=== PATIENT | male | born 1965 | race Caucasian/White ===

== ENCOUNTER 2016-02-25 14:12 | Emergency (ER) | payer BC ==
[2016-02-25] MEDS ORDERED: Ondansetron HCl/PF 4 MG/2 ML Vial ONE (14:36)
[2016-02-25] MEDS ORDERED: Ketorolac Tromethamine 30 MG/ML VIAL ONE (14:36)
[2016-02-25 14:54] LABS: #Basophils 0.1 thou/uL (0.0-0.2); #Eosinphils 0.2 thou/uL (0.0-0.7); #Lymphocytes 1.5 thou/uL (1.20-3.40); #Monocytes 0.4 thou/uL (0.11-0.59); %Monocytes 5.4 % (0.0-10.0); Hematocrit 51.4 % (42.0-52.0); Mean Platelet Volume 8.5 fL (7.4-10.4); Red Blood Cell (RBC) Count 5.39 mill/uL (4.70-6.10); White Blood Cell (WBC) Count 7.2 thou/uL (4.8-10.8)
[2016-02-25 15:11] LABS: ALT (SGPT) 23 U/L (0-55); AST (SGOT) 22 U/L (5-34); Alkaline Phosphatase 94 U/L (40-150); Anion Gap 15 mmol/L (10-20); BUN (Urea Nitrogen) 15 mg/dL (8.4-25.7); Bilirubin, Total 0.3 mg/dL (0.2-1.2); Calc. Creatinine Clearance 0 mL/min (70-130); Calcium 9.2 mg/dL (7.8-10.44); Carbon Dioxide 22 mmol/L (22-29); Chloride 105 mmol/L (98-107); Estimated GFR-MDRD 81; Globulin 3.2 g/dL (2.4-3.5); Lipase 33 U/L (8-78); Protein, Total 7.2 g/dL (6.0-8.3)
--- NOTE | 2016-02-25 17:14 | CT ---
CT ABDOMEN AND PELVIS WITH CONTRAST: Date: 02-25-16 Technique: Spiral CT of the abdomen and pelvis was performed for evaluation of periumbilical pain a fter giving oral and IV contrast. Axial slices were acquired and then coronal and sagittal reconstr uctions were done. FINDINGS: There is some dependent atelectasis in the lower lobes posteriorly. Otherwise, visible portions of the lower lungs were clear. A small hiatal hernia is present. The stomach is mildly distended with a large amount of the barium drunk still within the stomach. I cannot exclude some mild swelling at the gastric outlet. There is some mild wall thickening and a few loops of proximal jejunum, after which, the bowel is unremark able. Sometimes this can be seen in enteritis. The colon shows no dilation to suggest obstruction, nor is there a small bowel obstruction. The appendix was identified and appears normal. No free a ir or free fluid was seen. The liver, spleen, pancreas, adrenal glands, gallbladder and abdominal aorta all showed no acute fin dings. CT of the pelvis showed some mild increase in size of the prostate (5.5 cm width). No pelvic masses , inflammatory changes, or adenopathy was seen. The bony structures showed no acute changes. IMPRESSION: 1. Small hiatal hernia. 2. Mild gastric distention and slight thickening of a few loops of proximal small bowel. See above . 3. Regarding the patient's anterior abdominal wall, I do not see any obvious hernia, abscess, or ar ea of significance. POS: HOME
--- NOTE | 2016-02-25 19:01 | ERRECORD ---
[facility] EMERGENCY RECORD HPI ABDOMINAL PAIN (15:37 MBRI) CHIEF COMPLAINT: Patient presents for evaluation of abdominal pain. HISTORIAN: History provided by patient. LOCATION MALE: Symptoms are localized, most severe periumbilical, no radiation, No migration of pain, Pt states that when he stands up he feels some swelling in the area just sup to his umbilicus. Not present when he lays down. QUALITY: Pain is dull in nature, described as aching, sharp periods intermittently, worse today. SEVERITY: Maximum severity of symptoms moderate, Currently symptoms are moderate. TIME COURSE: Gradual onset of symptoms, 1 week but worse today., Symptoms are intermittent, Symptoms are worsening. ASSOCIATED WITH: No associated recent antibiotic use, No associated bright red blood per rectum, Associated with chills, No associated constipation, No associated diarrhea, No associated fever, No associated groin pain, No associated hematemesis, No associated hematuria, No associated loss of appetite, No associated melena, No associated nausea, No associated testicular pain, No associated trauma, No associated recent travel, No associated inability to tolerate oral intake, No associated urinary tract infection signs or symptoms, No associated vomiting. RELIEVED BY: Patient's condition relieved by nothing. EXACERBATED BY: Patient's condition exacerbated by cough, Patient's condition exacerbated by upright position. RISK FACTORS MALE: No testicular torsion risk factors, No abdominal aortic aneurysm risk factors, No coronary artery disease risk factors. ROS (15:34 MBRI) CONSTITUTIONAL: Negative constitutional review of systems, Historian denies chills, denies fever. EYES: Negative eye review of systems. ENT: Historian denies rhinorrhea, denies sore throat. CARDIOVASCULAR: Historian denies chest pain, denies dyspnea on exertion. RESPIRATORY: Historian denies cough, denies shortness of breath. GI: Negative gastrointestinal review of systems, Historian denies abdominal pain, denies diarrhea, denies nausea, denies vomiting. MUSCULOSKELETAL: Historian denies injury, Denies any musculoskeletal pain. SKIN: Negative skin review of systems, Historian denies skin changes. NEUROLOGIC: Negative neurologic review of systems, Historian denies focal weakness, denies sensory changes. PAST MEDICAL HISTORY (14:35 LGIB) MEDICAL HISTORY: No past medical history. MALE SURGICAL HISTORY: Surgical history of hernia repair. &a-1R&a+25V*p+0X*[id number]*c202B*c15G*c2P*p-0X&a-25V&a+1R Name: Rayshawn Banegas : 1965 M50 MedRec: [id number] AcctNum: [id number] Prepared: ThuFeb 25, 2016 18:39 by Interface Page 1 of 3 pMD [facility] EMERGENCY RECORD PSYCHIATRIC HISTORY: No previous psychiatric history. SOCIAL HISTORY: Patient denies alcohol use, Patient denies drug use, Patient currently uses tobacco, smokes cigarettes, Patient smokes 1 pack per day. KNOWN ALLERGIES No Known Drug Allergies CURRENT MEDICATIONS (18:33 KMOR) Unable to obtain VITAL SIGNS VITAL SIGNS: BP: 144/97, Pulse: 89, Resp: 18 (Non-Labored), Temp: 98.2 (Oral), Pain: 7, O2 sat: 96 on Room Air, Time: 02/25/2016 14:19. (14:19 LGIB) BP: 140/96, Pulse: 81, Resp: 18, Pain: 0, O2 sat: 94 on Room Air, Time: 02/25/2016 16:46. (16:46 KMOR) PHYSICAL EXAM CONSTITUTIONAL: Vital Signs Reviewed, Nursing notes reviewed. (15:34 MBRI) HEAD: Head exam included findings of head atraumatic, normocephalic. (15:34 MBRI) EYES: Eye exam included findings of eyelids normal to inspection, Pupils equally round and reactive to light, Extraocular muscles intact. (15:34 MBRI) ENT: Pharynx exam normal, Mouth exam normal. (15:34 MBRI) NECK: Neck exam normal, no cervical adenopathy, no tenderness. (15:34 MBRI) RESPIRATORY CHEST: Respiratory exam included findings of no respiratory distress, Breath sounds clear, No wheezing, No rales, No rhonchi. (15:34 MBRI) CARDIOVASCULAR: Cardiovascular exam included findings of heart rate regular rate and rhythm, Heart sounds normal, Carotids normal. (15:34 MBRI) ABDOMEN MALE: Abdominal exam included findings of abdomen tender, periumbilical, mild intensity, Bowel sounds, hyperactive, no distension, no mass, no pulsatile masses, no peritoneal signs, no rigidity, no guarding, no rebound, no inguinal hernia, no umbilical hernia present, no ventral hernia. (15:36 MBRI) BACK: Back exam included findings of normal inspection, no tenderness. (15:34 MBRI) UPPER EXTREMITY: Upper extremity exam included findings of inspection normal, Radial pulse normal, no cyanosis, no clubbing, no edema. (15:34 MBRI) LOWER EXTREMITY: Lower extremity exam included findings of inspection normal, femoral pulses normal, no cyanosis, no clubbing, no edema, no tenderness noted. (15:34 MBRI) NEURO: Neuro exam findings include patient oriented to person, &a-1R&a+25V*p+0X*[id number]*c202B*c15G*c2P*p-0X&a-25V&a+1R Name: Rayshawn Banegas : 1965 M50 MedRec: [id number] AcctNum: [id number] Prepared: ThuFeb 25, 2016 18:39 by Interface Page 2 of 3 pMD [facility] EMERGENCY RECORD place and time, Speech normal, no focal motor deficits. (15:34 MBRI) SKIN: Skin exam included findings of skin warm, dry, and normal in color. (15:34 MBRI) RADIOLOGYINTERPRETATION (16:25 MBRI) ABDOMEN: Abdomen/pelvis CT scan, with contrast negative, no abdominal aortic aneurysm, no appendicitis, no diverticulitis, no injuries, no mass, no obstruction, no free air, slight thickening of the prox sma bowel without other acute process. 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 MEDICATION ADMINISTRATION SUMMARY Drug Name: ketorolac injection, Dose Ordered: 30 mg, Route: IV Push, Status: Given, Time: 14:46 02/25/2016, Drug Name: morphine injection, Dose Ordered: 4 mg, Route: IV Push, Status: Given, Time: 14:45 02/25/2016, Drug Name: ondansetron HCl intravenous, Dose Ordered: 4 mg, Route: IV Push, Status: Given, Time: 14:43 02/25/2016, Drug Name: *sodium chloride 0.9 % intravenous, Dose Ordered: 1 L, Route: IV Fluid Infusion, Status: Given, Time: 14:42 02/25/2016, *Additional information available in notes, Detailed record available in Medication Service section. DOCTOR NOTES (16:26 MBRI) RE-EVALUATION: Routine re-evaluation, after administration of analgesics, The patient's condition has improved, Pt with some slight fullness in the area just sup to the umbilicus when he stands that really is nontender at this time. PROBLEM LIST No recorded problems DIAGNOSIS (16:30 MBRI) FINAL: PRIMARY: UNSPECIFIED ABDOMINAL PAIN. PRESCRIPTION (16:30 MBRI) traMADol: TABLET : 50 mg : ORAL : Quantity: 1 Unit: tab(s) Route: ORAL Schedule: every 6 hours PRN Dispense: 20 May substitute. Refills: No Refills . NOTES: No refills. DISPOSITION PATIENT: Disposition Type: Discharge, Disposition: *Discharge Home, Condition: Good. (16:30 MBRI) Patient left the department. (18:35 KMOR) [place]: KMOR=JOSSIE Adkins, Tiffany LGIB=JOSSIE Steele, Ines MBRI=DO Harden Matthew &a-1R&a+25V*p+0X*a9557B*c202B*c15G*c2P*p-0X&a-25V&a+1R Name: Rayshawn Banegas : 1965 M50 MedRec: [id number] AcctNum: [id number] Prepared: ThuFeb 25, 2016 18:39 by Interface Page 3 of 3 pMD MTDD
--- NOTE | 2016-02-25 19:06 | PICIS ---
[facility] EMERGENCY RECORD TRIAGE (ThuFeb 25, 2016 14:21 LGIB) TRIAGE NOTES: thinks he has a hernia. sharp pain. (ThuFeb 25, 2016 14:21 LGIB) PATIENT: NAME: Rayshawn Banegas, AGE: 50, GENDER: male, : [facility] 1965, TIME OF GREET: ThuFeb 25, 2016 14:12, PREFERRED LANGUAGE: Amharic, ETHNICITY: Not or , ECODE BILLING MAP: [facility] ER, KG WEIGHT: 83.91, , , PERSON ID: [id number], PCP: oot. (ThuFeb 25, 2016 14:21 LGIB) Zip Code: [address], PHONE: , PAYMENT: [employer]. (15:01) COMPLAINT: abd pain. (ThuFeb 25, 2016 14:21 LGIB) ADMISSION: URGENCY: 3 Urgent, ADMISSION SOURCE: Home, TRANSPORT: CAR, BED: ER -02. (ThuFeb 25, 2016 14:21 LGIB) PROVIDERS: TRIAGE NURSE: Ines Steele RN. (ThuFeb 25, 2016 14:21 LGIB) VITAL SIGNS: BP 144/97, Pulse 89, Resp 18, (Non-Labored), Temp 98.2, (Oral), Pain 7, O2 Sat 96, on Room Air, Time 02/25/2016 14:19. (14:19 LGIB) KNOWN ALLERGIES No Known Drug Allergies CURRENT MEDICATIONS (18:33 KMOR) Unable to obtain VITAL SIGNS VITAL SIGNS: BP: 144/97, Pulse: 89, Resp: 18 (Non-Labored), Temp: 98.2 (Oral), Pain: 7, O2 sat: 96 on Room Air, Time: 02/25/2016 14:19. (14:19 LGIB) BP: 140/96, Pulse: 81, Resp: 18, Pain: 0, O2 sat: 94 on Room Air, Time: 02/25/2016 16:46. (16:46 KMOR) NURSING PROCEDURE: DISCHARGE NOTE (18:33 KMOR) DISCHARGE: Patient discharged to home, ambulating without assistance, driving self, unaccompanied, Summary of Care printed/ provided, Transition record given to patient, Discharge instructions given to patient, Simple or moderate discharge teaching performed, by JOSSIE Allen, Discharge instructions and follow up reviewed with patient. Pt ambulatory to discharge desk., Prescriptions given and instructions on side effects given, Name of prescription(s) given: tramadol, Above person(s) verbalized understanding of discharge instructions and follow-up care. BELONGINGS: Belongings remain with patient, Valuables remain with patient. NURSING PROCEDURE: IV PATIENT IDENITIFIER: Patient actively involved in identification process, Patient's identity verified by patient stating name, Patient's identity verified by patient stating date. (15:00 KMOR) &a-1R&a+25V*p+0X*a4552P*c202B*c15G*c2P*p-0X&a-25V&a+1R Name: Rayshawn Banegas : 1965 M50 MedRec: [id number] AcctNum: [id number] Prepared: ThuFeb 25, 2016 18:45 by Interface Page 1 of 10 pMD [facility] EMERGENCY RECORD Patient actively involved in identification process, Patient's identity verified by patient stating name, Patient's identity verified by patient stating date. (16:45 KMOR) IV SITE 1: IV therapy indicated for hydration, IV therapy indicated for medication administration, IV established, to the left antecubital, using an 18 gauge catheter, Saline lock established, Flushed with normal saline (mls): 10cc, Labs drawn at time of placement, labeled in the presence of the patient and sent to lab. (15:00 KMOR) FOLLOW-UP SITE 1: After procedure, 2x3 ensure dressing applied, After procedure, no drainage at IV site, After procedure, no swelling at IV site, After procedure, no redness at IV site. (15:00 KMOR) IV discontinued, due to patient being discharged, catheter intact. (16:45 KMOR) NOTES: Patient tolerated procedure well, Procedure done by JOSSIE Bermeo. (15:00 KMOR) Patient tolerated procedure well. (16:45 KMOR) NURSING PROCEDURE: NURSE NOTES (16:44 KMOR) NURSES NOTES: Notes: patient states he does not have a ride but does not want to wait in small room, informed patient he would be a 4 hour wait but he was more than welcome to wait in lobby or [facility] with TV. [facility] to [facility]. ORDER DETAILS Order Name: CBC with Differential, Status: Active, Time: 14:23 02/25/2016, User: SANDEEP, - Ordered for: DO Harden Matthew, - Entered by: DO Harden Matthew - [facility] Feb 25, 2016 14:23, - Quantity: 1, Order Name: Comprehensive Metabolic Panel, Status: Active, Time: 14:23 02/25/2016, User: SANDEEP, - Ordered for: DO Harden Matthew, - Entered by: DO Harden Matthew - [facility] Feb 25, 2016 14:23, - Quantity: 1, Order Name: CT Abdomen Pelvis W Con, Status: Active, Time: 14:23 02/25/2016, User: SANDEEP, - Ordered for: DO Harden Matthew, - Entered by: DO Harden Matthew - [facility] Feb 25, 2016 14:23, - Quantity: 1, Order Name: Diet: Nothing by Mouth (NPO), Status: Done, Time: 14:35 02/25/2016, User: ANA ROSA, - Ordered for: DO Harden Matthew, - Entered by: DO Harden Matthew - ThuFeb 25, 2016 14:23, - Quantity: 1, Order Name: Lipase, Status: Active, Time: 14:23 02/25/2016, User: SANDEEP, - Ordered for: DO Harden Matthew, - Entered by: DO Harden Matthew - ThuFeb 25, 2016 14:23, &a-1R&a+25V*p+0X*v2350H*c202B*c15G*c2P*p-0X&a-25V&a+1R Name: Rayshawn Banegas : 1965 M50 MedRec: [id number] AcctNum: [id number] Prepared: ThuFeb 25, 2016 18:45 by Interface Page 2 of 10 pMD [facility] EMERGENCY RECORD - Quantity: 1, Order Name: SALINE LOCK, Status: Done, Time: 14:47 02/25/2016, User: TYIB, - Ordered for: DO Harden Matthew, - Entered by: DO Harden Matthew - ThuFeb 25, 2016 14:23, - Quantity: 1, Order Name: Urinalysis w/ Rflx Microscopic, Status: Active, Time: 14:23 02/25/2016, User: SANDEEP, - Ordered for: DO Harden Matthew, - Entered by: DO Harden Matthew - ThuFeb 25, 2016 14:23, - Quantity: 1. MEDICATION ADMINISTRATION SUMMARY Drug Name: ketorolac injection, Dose Ordered: 30 mg, Route: IV Push, Status: Given, Time: 14:46 02/25/2016, Drug Name: morphine injection, Dose Ordered: 4 mg, Route: IV Push, Status: Given, Time: 14:45 02/25/2016, Drug Name: ondansetron HCl intravenous, Dose Ordered: 4 mg, Route: IV Push, Status: Given, Time: 14:43 02/25/2016, Drug Name: *sodium chloride 0.9 % intravenous, Dose Ordered: 1 L, Route: IV Fluid Infusion, Status: Given, Time: 14:42 02/25/2016, *Additional information available in notes, Detailed record available in Medication Service section. MEDICATION SERVICE ketorolac injection: Order: ketorolac injection (ketorolac tromethamine) - Dose: 30 mg : IV Push Ordered by: Ahsan Harden DO Entered by: Ahsan Harden DO ThuFeb 25, 2016 14:24 , Acknowledged by: Ines Steele RN ThuFeb 25, 2016 14:34 Documented as given by: Ines Steele RN ThuFeb 25, 2016 14:46 Patient, Medication, Dose, Route and Time verified prior to administration. IV SITE #1 IVP, subsequent different medication, Slowly, Catheter placement confirmed via flush prior to administration, IV site without signs or symptoms of infiltration during medication administration, No swelling during administration, No drainage during administration, IV flushed after administration, Correct patient, time, route, dose and medication confirmed prior to administration, Patient advised of actions and side-effects prior to administration, Allergies confirmed and medications reviewed prior to administration, Patient in position of comfort, Side rails up, Cart in lowest position. : Follow Up : Response assessment performed, No signs or symptoms of allergic reaction noted, Decreased pain, _IV SITE #1:_. (15:45 KMOR) morphine injection: Order: morphine injection (morphine sulfate) - Dose: 4 mg : IV Push Ordered by: Ahsan Harden DO &a-1R&a+25V*p+0X*i8141R*c202B*c15G*c2P*p-0X&a-25V&a+1R Name: Rayshawn Banegas : 1965 M50 MedRec: [id number] AcctNum: [id number] Prepared: ThuFeb 25, 2016 18:45 by Interface Page 3 of 10 pMD [facility] EMERGENCY RECORD Entered by: Ahsan Harden DO ThuFeb 25, 2016 14:24 , Acknowledged by: Ines Steele RN ThuFeb 25, 2016 14:32 Documented as given by: Ines Steele RN ThuFeb 25, 2016 14:45 Patient, Medication, Dose, Route and Time verified prior to administration. IV SITE #1 IVP, subsequent different medication, Slowly, Awake and alert- acceptable, Catheter placement confirmed via flush prior to administration, IV site without signs or symptoms of infiltration during medication administration, No swelling during administration, No drainage during administration, IV flushed after administration, Correct patient, time, route, dose and medication confirmed prior to administration, Patient advised of actions and side-effects prior to administration, Allergies confirmed and medications reviewed prior to administration, Patient in position of comfort, Side rails up, Cart in lowest position. : Follow Up : Response assessment performed, No signs or symptoms of allergic reaction noted, Decreased pain, _IV SITE #1:_. (16:45 KMOR) ondansetron HCl intravenous: Order: ondansetron HCl intravenous (ondansetron HCl) - Dose: 4 mg : IV Push Ordered by: Ahsan Harden DO Entered by: Ahsan Harden DO ThuFeb 25, 2016 14:24 , Acknowledged by: Ines Steele RN ThuFeb 25, 2016 14:34, Acknowledged by: Ines Steele RN ThuFeb 25, 2016 14:32 Documented as given by: Ines Steele RN ThuFeb 25, 2016 14:43 Patient, Medication, Dose, Route and Time verified prior to administration. IV SITE #1 IVP, initial medication, Slowly, Catheter placement confirmed via flush prior to administration, IV site without signs or symptoms of infiltration during medication administration, No swelling during administration, No drainage during administration, IV flushed after administration, Correct patient, time, route, dose and medication confirmed prior to administration, Patient advised of actions and side-effects prior to administration, Allergies confirmed and medications reviewed prior to administration, Patient in position of comfort, Side rails up, Cart in lowest position, Family at bedside. : Follow Up : Response assessment performed, No signs or symptoms of allergic reaction noted, _IV SITE #1:_. (15:15 KMOR) sodium chloride 0.9 % intravenous: Order: sodium chloride 0.9 % intravenous (0.9 % sodium chloride) - Dose: 1 L : IV Fluid Infusion Notes: (Bolus) Ordered by: Ahsan Harden DO Entered by: Ahsan Harden DO ThuFeb 25, 2016 14:26 , Acknowledged by: Ines Steele RN ThuFeb 25, 2016 14:32 Documented as given by: Ines Steele RN ThuFeb 25, 2016 14:42 Patient, Medication, Dose, Route and Time verified prior to administration. IV SITE #1 IV fluids established for hydration, IV SITE #1 into left &a-1R&a+25V*p+0X*b0726I*c202B*c15G*c2P*p-0X&a-25V&a+1R Name: Rayshawn Banegas : 1965 M50 MedRec: [id number] AcctNum: [id number] Prepared: ThuFeb 25, 2016 18:45 by Interface Page 4 of 10 pMD [facility] EMERGENCY RECORD antecubital, IV SITE #1 1st bag hung, amount 1 Liter hung, via primary tubing, Catheter placement confirmed via flush prior to administration, IV site without signs or symptoms of infiltration during medication administration, No swelling during administration, No drainage during administration, IV flushed after administration, Correct patient, time, route, dose and medication confirmed prior to administration, Patient advised of actions and side-effects prior to administration, Allergies confirmed and medications reviewed prior to administration, Patient in position of comfort, Side rails up, Cart in lowest position. : Follow Up : Response assessment performed, No signs or symptoms of allergic reaction noted, _IV SITE #1:_, IV fluid infusion discontinued, on ThuFeb 25, 2016 15:45, Total fluid hydration time IV site 1 1 hour, 5 minutes, ., Total amount infused: 1000ML. (15:45 KMOR) HPI ABDOMINAL PAIN (15:37 MBRI) CHIEF COMPLAINT: Patient presents for evaluation of abdominal pain. HISTORIAN: History provided by patient. LOCATION MALE: Symptoms are localized, most severe periumbilical, no radiation, No migration of pain, Pt states that when he stands up he feels some swelling in the area just sup to his umbilicus. Not present when he lays down. QUALITY: Pain is dull in nature, described as aching, sharp periods intermittently, worse today. SEVERITY: Maximum severity of symptoms moderate, Currently symptoms are moderate. TIME COURSE: Gradual onset of symptoms, 1 week but worse today., Symptoms are intermittent, Symptoms are worsening. ASSOCIATED WITH: No associated recent antibiotic use, No associated bright red blood per rectum, Associated with chills, No associated constipation, No associated diarrhea, No associated fever, No associated groin pain, No associated hematemesis, No associated hematuria, No associated loss of appetite, No associated melena, No associated nausea, No associated testicular pain, No associated trauma, No associated recent travel, No associated inability to tolerate oral intake, No associated urinary tract infection signs or symptoms, No associated vomiting. RELIEVED BY: Patient's condition relieved by nothing. EXACERBATED BY: Patient's condition exacerbated by cough, Patient's condition exacerbated by upright position. RISK FACTORS MALE: No testicular torsion risk factors, No abdominal aortic aneurysm risk factors, No coronary artery disease risk factors. ROS (15:34 MBRI) CONSTITUTIONAL: Negative constitutional review of systems, Historian denies chills, denies fever. EYES: Negative eye review of systems. ENT: Historian denies rhinorrhea, denies sore throat. &a-1R&a+25V*p+0X*r8818T*c202B*c15G*c2P*p-0X&a-25V&a+1R Name: Rayshawn Banegas : 1965 M50 MedRec: [id number] AcctNum: [id number] Prepared: ThuFeb 25, 2016 18:45 by Interface Page 5 of 10 pMD [facility] EMERGENCY RECORD CARDIOVASCULAR: Historian denies chest pain, denies dyspnea on exertion. RESPIRATORY: Historian denies cough, denies shortness of breath. GI: Negative gastrointestinal review of systems, Historian denies abdominal pain, denies diarrhea, denies nausea, denies vomiting. MUSCULOSKELETAL: Historian denies injury, Denies any musculoskeletal pain. SKIN: Negative skin review of systems, Historian denies skin changes. NEUROLOGIC: Negative neurologic review of systems, Historian denies focal weakness, denies sensory changes. PAST MEDICAL HISTORY (14:35 LGIB) MEDICAL HISTORY: No past medical history. MALE SURGICAL HISTORY: Surgical history of hernia repair. PSYCHIATRIC HISTORY: No previous psychiatric history. SOCIAL HISTORY: Patient denies alcohol use, Patient denies drug use, Patient currently uses tobacco, smokes cigarettes, Patient smokes 1 pack per day. PHYSICAL EXAM CONSTITUTIONAL: Vital Signs Reviewed, Nursing notes reviewed. (15:34 MBRI) HEAD: Head exam included findings of head atraumatic, normocephalic. (15:34 MBRI) EYES: Eye exam included findings of eyelids normal to inspection, Pupils equally round and reactive to light, Extraocular muscles intact. (15:34 MBRI) ENT: Pharynx exam normal, Mouth exam normal. (15:34 MBRI) NECK: Neck exam normal, no cervical adenopathy, no tenderness. (15:34 MBRI) RESPIRATORY CHEST: Respiratory exam included findings of no respiratory distress, Breath sounds clear, No wheezing, No rales, No rhonchi. (15:34 MBRI) CARDIOVASCULAR: Cardiovascular exam included findings of heart rate regular rate and rhythm, Heart sounds normal, Carotids normal. (15:34 MBRI) ABDOMEN MALE: Abdominal exam included findings of abdomen tender, periumbilical, mild intensity, Bowel sounds, hyperactive, no distension, no mass, no pulsatile masses, no peritoneal signs, no rigidity, no guarding, no rebound, no inguinal hernia, no umbilical hernia present, no ventral hernia. (15:36 MBRI) BACK: Back exam included findings of normal inspection, no tenderness. (15:34 MBRI) UPPER EXTREMITY: Upper extremity exam included findings of inspection normal, Radial pulse normal, no cyanosis, no clubbing, no edema. (15:34 MBRI) LOWER EXTREMITY: Lower extremity exam included findings of &a-1R&a+25V*p+0X*b1983X*c202B*c15G*c2P*p-0X&a-25V&a+1R Name: Rayshawn Banegas : 1965 M50 MedRec: [id number] AcctNum: [id number] Prepared: ThuFeb 25, 2016 18:45 by Interface Page 6 of 10 pMD [facility] EMERGENCY RECORD inspection normal, femoral pulses normal, no cyanosis, no clubbing, no edema, no tenderness noted. (15:34 MBRI) NEURO: Neuro exam findings include patient oriented to person, place and time, Speech normal, no focal motor deficits. (15:34 MBRI) SKIN: Skin exam included findings of skin warm, dry, and normal in color. (15:34 MBRI) LAB INTERPRETATION (15:36 MBRI) INTERPRETATION: I reviewed the lab results. EVENTS TRANSFER: Triage to Emergency Emergency Room -02. (ThuFeb 25, 2016 14:21 LGIB) Emergency Emergency Room -02 to -05. (15:50 LGIB) Emergency Emergency Room -05 to Waiting. (16:46 KMOR) Removed from Emergency Waiting. (18:35 KMOR) RADIOLOGYINTERPRETATION (16:25 MBRI) ABDOMEN: Abdomen/pelvis CT scan, with contrast negative, no abdominal aortic aneurysm, no appendicitis, no diverticulitis, no injuries, no mass, no obstruction, no free air, slight thickening of the prox sma bowel without other acute process. SOLAR DESIGNER: Preliminary review of CT scans by, Radiologist. O2SAT INTERPRETATION (15:36 MBRI) O2SAT: Oxygen saturation interpretation: Normal. DOCTOR NOTES (16:26 MBRI) RE-EVALUATION: Routine re-evaluation, after administration of analgesics, The patient's condition has improved, Pt with some slight fullness in the area just sup to the umbilicus when he stands that really is nontender at this time. PROBLEM LIST No recorded problems DIAGNOSIS (16:30 MBRI) FINAL: PRIMARY: UNSPECIFIED ABDOMINAL PAIN. DISPOSITION PATIENT: Disposition Type: Discharge, Disposition: *Discharge Home, Condition: Good. (16:30 MBRI) Patient left the department. (18:35 KMOR) INSTRUCTION (16:31 MBRI) DISCHARGE: VENTRAL HERNIA, ABDOMINAL PAIN, UNKOWN CAUSE, (MALE). FOLLOWUP: [facility], /Anuja Cosby, [address] [place] [address], [facility] [id number], , Keyla GORDON., [place], General Surgery, [facility] [address], [address], [place] [address], [phone], Follow up with Primary Care Physician as needed, Follow &a-1R&a+25V*p+0X*e1819U*c202B*c15G*c2P*p-0X&a-25V&a+1R Name: Rayshawn Banegas : 1965 M50 MedRec: [id number] AcctNum: [id number] Prepared: ThuFeb 25, 2016 18:45 by Interface Page 7 of 10 pMD [facility] EMERGENCY RECORD up with Specialist as needed. SPECIAL: Please return for any further issues or concerns, we would be happy to see you. We hope you feel better soon. Follow-up with your PCP Tylenol or Advil for Pain May return to work. PRESCRIPTION (16:30 MBRI) traMADol: TABLET : 50 mg : ORAL : Quantity: 1 Unit: tab(s) Route: ORAL Schedule: every 6 hours PRN Dispense: 20 May substitute. Refills: No Refills . NOTES: No refills. IMAGING *DISCHARGE INSTRUCTIONS RECEIPT: Image captured from scanner. (18:32 KMOR) Page 2 added. Image captured from scanner. (18:32 KMOR) *SUPPLY CHARGE SHEET: Image captured from scanner. (18:33 KMOR) ADMIN (18:37 KMOR) DIGITAL SIGNATURE: JOSSIE Adkins, Tiffany. RESULTS RADIOLOGY: CT Abdomen Pelvis W Con Observe DT: ThuFeb 25, 2016 16:18, ABDPELV CT ABDOMEN AND PELVIS WITH CONTRAST: Date: 02-25-16 Technique: Spiral CT of the abdomen and pelvis was performed for evaluation of periumbilical pain a fter giving oral and IV contrast. Axial slices were acquired and then coronal and sagittal reconstr uctions were done. FINDINGS: There is some dependent atelectasis in the lower lobes posteriorly. Otherwise, visible portions of the lower lungs were clear. A small hiatal hernia is present. The stomach is mildly distended with a large amount of the barium drunk still within the stomach. I cannot exclude some mild swelling at the gastric outlet. There is some mild wall thickening and a few loops of proximal jejunum, after which, the bowel is unremark able. Sometimes this can be seen in enteritis. The colon shows no dilation to suggest obstruction, &a-1R&a+25V*p+0X*g4324W*c202B*c15G*c2P*p-0X&a-25V&a+1R Name: Rayshawn Banegas : 1965 M50 MedRec: [id number] AcctNum: [id number] Prepared: ThuFeb 25, 2016 18:45 by Interface Page 8 of 10 pMD [facility] EMERGENCY RECORD nor is there a small bowel obstruction. The appendix was identified and appears normal. No free a ir or free fluid was seen. The liver, spleen, pancreas, adrenal glands, gallbladder and abdominal aorta all showed no acute fin dings. CT of the pelvis showed some mild increase in size of the prostate (5.5 cm width). No pelvic masses , inflammatory changes, or adenopathy was seen. The bony structures showed no acute changes. IMPRESSION: 1. Small hiatal hernia. 2. Mild gastric distention and slight thickening of a few loops of proximal small bowel. See above . 3. Regarding the patients anterior abdominal wall, I do not see any obvious hernia, abscess, or ar ea of significance. POS: HOME . (18:12 MBRI) LABORATORY: Lipase Collection DT: ThuFeb 25, 2016 14:38, Lipase 33 U/L, Range (8-78). (15:21 MBRI) Comprehensive Metabolic Panel Collection DT: ThuFeb 25, 2016 14:38, Sodium 138 mmol/L, Range (136-145), Potassium 3.6 mmol/L, Range (3.5-5.1), Chloride 105 mmol/L, Range (98-107), Carbon Dioxide 22 mmol/L, Range (22-29), Anion Gap 15 mmol/L, Range (10-20), BUN (Urea Nitrogen) 15 mg/dL, Range (8.4-25.7), Creatinine 0.98 mg/dL, Range (0.7-1.3), Estimated GFR-MDRD 81 , Reference Range for Estimated GFR: Greater than 90, mL/min/1.73 m2 NOTE: The MDRD equation has not been validated for use, with the elderly (over 70 years of age), women, patients with, serious comorbid condition or persons with extremes of body size, muscle, mass, or nutritional status. , *Glucose 141 - H mg/dL, Range (70-105), Calcium 9.2 mg/dL, Range (7.8-10.44), Bilirubin, Total 0.3 mg/dL, Range (0.2-1.2), Protein, Total 7.2 g/dL, Range (6.0-8.3), NOTE: Plasma values are generally 0.3 to 0.5 g/dL higher than serum values, due to the presence of fibrinogen. , Albumin 4.0 g/dL, Range (3.5-5.0), Globulin 3.2 g/dL, Range (2.4-3.5), &a-1R&a+25V*p+0X*q5198C*c202B*c15G*c2P*p-0X&a-25V&a+1R Name: Rayshawn Banegas : 1965 M50 MedRec: [id number] AcctNum: [id number] Prepared: ThuFeb 25, 2016 18:45 by Interface Page 9 of 10 pMD [facility] EMERGENCY RECORD Alb/Glob Ratio 1.3 g/dL, Range (1.2-2.2), Alkaline Phosphatase 94 U/L, Range (40-150), AST (SGOT) 22 U/L, Range (5-34), ALT (SGPT) 23 U/L, Range (0-55). (15:21 MBRI) CBC with Differential Collection DT: ThuFeb 25, 2016 14:38, White Blood Cell (WBC) Count 7.2 thou/uL, Range (4.8-10.8), Red Blood Cell (RBC) Count 5.39 mill/uL, Range (4.70-6.10), Hemoglobin 16.6 g/dL, Range (14.0-18.0), Hematocrit 51.4 %, Range (42.0-52.0), *Mean Corpuscular Volume 95.3 - H fl, Range (80.0-94.0), Mean Corpuscular Hemoglobin 30.8 pg, Range (27.0-31.0), Mean Corpuscular HGB CONC 32.3 g/dL, Range (32.0-36.0), RBC Distribution Width 13.9 %, Range (11.5-14.5), Platelet Count 205 thou/uL, Range (130-400), Mean Platelet Volume 8.5 fL, Range (7.4-10.4), %Neutrophils 69.5 %, Range (42.0-75.0), %Lymphocytes 21.2 %, Range (21.0-51.0), %Monocytes 5.4 %, Range (0.0-10.0), %Eosinophils 3.0 %, Range (0.0-10.0), %Basophils 1.0 %, Range (0.0-1.0), #Neutrophils 5.0 thou/uL, Range (1.40-6.50), #Lymphocytes 1.5 thou/uL, Range (1.20-3.40), #Monocytes 0.4 thou/uL, Range (0.11-0.59), #Eosinphils 0.2 thou/uL, Range (0.0-0.7), #Basophils 0.1 thou/uL, Range (0.0-0.2). (15:21 [facility]) [place]le: ZULMAOR=JOSSIE Adkins, Tiffany LGIB=JOSSIE Steele, Ines MBRI=DO Harden Matthew &a-1R&a+25V*p+0X*n6929B*c202B*c15G*c2P*p-0X&a-25V&a+1R Name: Rayshawn Banegas : 1965 M50 MedRec: [id number] AcctNum: [id number] Prepared: ThuFeb 25, 2016 18:45 by Interface Page 10 of 10 D [facility] MEDICATION RECONCILIATION You were seen in the Emergency Department on: ThuFeb 25, 2016 KNOWN ALLERGIES No Known Drug Allergies MEDICATIONS GIVEN WHILE IN THE EMERGENCY DEPARTMENT morphine injection (morphine sulfate) - Dose: 4 milligram(s) : IV Push ondansetron HCl intravenous (ondansetron HCl) - Dose: 4 milligram(s) : IV Push ketorolac injection (ketorolac tromethamine) - Dose: 30 milligram(s) : IV Push sodium chloride 0.9 % intravenous (0.9 % sodium chloride) - Dose: 1 liter(s) : IV Fluid Infusion HOME MEDICATIONS Unable to obtain Notes from the emergency department Reviewed with patient PRESCRIPTIONS (1) &a-1R&a+25V*p+0X*b5883M*c202B*c15G*c2P*p-0X&a-25V&a+1R Name: Rayshawn Banegas : 1965 M50 MedRec: [id number] AcctNum: [id number] Prepared: ThuFeb 25, 2016 18:45 by Interface Taj DAVIS
== END 2016-02-25 18:30 | disposition home or self-care (01) ==
LOC: BURERS 14:12
DX: R10.33 Periumbilical pain (principal); F17.210 Nicotine dependence, cigarettes, uncomplicated
CPT/HCPCS: 36415; 74177; 80053; 83690; 85025; 96361; 96374; 96375; J1885; J2270; J2405